=== PATIENT | female | born 1980 | race Caucasian/White ===

== ENCOUNTER 2020-10-28 11:51 | Emergency (ER) | payer OTHER ==
[2020-10-28 12:29] LABS: INR 1.11 (0.9-1.2); PROTHROMBIN TIME 13.6 SECONDS (11.4-13.6); PTT 27.6 SECONDS (22.2-34.7)
[2020-10-28 12:31] LABS: BASOPHIL 0.5 % (0-2); EOSINOPHIL 0.9 % (0-5); HCT 41.1 % (37.0-47.0); HGB 13.6 g/dl (12.5-16.0); MCH 30.5 pg (25.0-31.0); MCHC 33.1 g/dL (32.0-36.0); MCV 92.2 fL (78.0-100.0); MONOCYTE 6.8 % (0-12); MPV 10.1 fL (6.0-9.5); NEUTROPHIL 71.2 % (41-80); NRBC 0; PLT 252 K/uL (150-400); RBC 4.46 M/uL (4.20-5.40); RDW 12.6 % (11.5-14.0); WBC 8.9 K/uL (4.0-10.5)
[2020-10-28 12:40] LABS: ALBUMIN 4.1 g/dL (3.4-5.0); BILIRUBIN - TOTAL 0.4 mg/dL (0.2-1.0); BUN/CREAT RATIO (CALC) 24.6 RATIO; CREATININE 0.65 mg/dL (0.51-0.95); GLOBULIN (CALCULATION) 3.6 g/dL; POTASSIUM 3.4 mmol/L (3.5-5.1); TOTAL PROTEIN 7.7 g/dL (6.4-8.2)
== END 2020-10-28 15:05 | disposition home or self-care (01) ==
LOC: FER 11:51
PROVIDERS: Emergency Medicine
DX: R07.89 Other chest pain (principal); I49.9 Cardiac arrhythmia, unspecified; E03.9 Hypothyroidism, unspecified; Z79.899 Other long term (current) drug therapy
CPT/HCPCS: 36415; 71045; 80053; 84484; 85025; 85610; 85730; 93005

== ENCOUNTER → 2022-04-30 | Day surgery (SDC) | payer OTHER ==
[~2022-04-30] VITALS: Ht 160 cm; Wt 68.0 kg
[~2022-04-30] MED LIST: LEVOTHYROXINE125 MCG PO
[2022-04-30 08:01] LABS: HCG (URINE) SCREEN NEGATIVE (NEGATIVE)
[2022-04-30 08:22] LABS: HCT 36.4 % (37.0-47.0); HGB 12.2 g/dl (12.5-16.0); MCH 29.2 pg (25.0-31.0); MCHC 33.5 g/dL (32.0-36.0); MCV 87.1 fL (78.0-100.0); MPV 10.1 fL (6.0-9.5); RBC 4.18 M/uL (4.20-5.40); RDW 13.2 % (11.5-14.0); WBC 5.9 K/uL (4.0-10.5)
== END | disposition home or self-care (01) ==
LOC: FAS 07:31
PROVIDERS: Specialist
DX: N80.0 Endometriosis of uterus (principal); N83.8 Other noninflammatory disorders of ovary, fallopian tube and broad ligament; N73.6 Female pelvic peritoneal adhesions (postinfective); E03.9 Hypothyroidism, unspecified
CPT/HCPCS: 36415; 84703; 86850; 86900; 86901; J0690; J1100; J1170; J1885; J2175; J2250; J2405; J2550; J2704; J3010; J7120